=== PATIENT | male | born 1960 | race Caucasian/White ===

== ENCOUNTER 2016-08-29 06:20 | Day surgery (SDC) | payer BC ==
[2016-08-28 14:06] LABS: HEMATOCRIT 45.2 % (42.0-54.0); HEMOGLOBIN 15.2 g/dL (13.5-17.5); MCH 28.4 pg (26.0-34.0); MCHC 33.6 g/dL (31.0-37.0); MCV 84.5 fL (80.0-100.0); MEAN PLATELET VOLUME 10.7 fL (7.4-10.4); RBC 5.35 10x6/uL (4.20-6.10); RDW 14.9 % (11.5-14.5); WBC 12.4 10x3/uL (4.8-10.8)
[~2016-08-29] VITALS: Ht 177.8 cm; Wt 93.0 kg
[~2016-08-29 06:20] MED LIST: CARDIZEM120 MG PO; ELIQUIS5 MG PO; GABAPENTIN100 MG PO; RISPERDAL1 MG PO
[2016-08-29] MEDS ORDERED: FOLATE0.4 MG (06:37)
[2016-08-29] MEDS ORDERED: BAYER CHEWABLE81 MG PO (06:37)
[2016-08-29] MEDS ORDERED: VITAMIN B-150 MG (06:37)
[2016-08-29] MEDS ORDERED: MAGNESIUM OXID250 MG (06:37)
[2016-08-29] MEDS ORDERED: MULTIPLE VITAMI1 TA1 PO (06:38)
[2016-08-29 06:39] VITALS: BP 126/68; Ht 177.8 cm; Wt 93.0 kg
--- NOTE | 2016-08-29 12:57 | NUR ---
0930 IV DC WITH CATHER TIP INTACT
--- NOTE | 2016-09-09 12:19 | OP ---
PATIENT NAME: JESSICA BAR MEDICAL RECORD: [id number] :58 LOCATION:[facility] ADMISSION DATE: SURGEON: KVNG MIRANDA MD DATE OF OPERATION: 08/29/2016 PREOPERATIVE DIAGNOSIS: Right hip degenerative joint disease. POSTOPERATIVE DIAGNOSIS: Right hip degenerative joint disease. PROCEDURE PERFORMED: Right hip injection under fluoroscopy. SURGEON: Ric Miranda MD ANESTHESIA: TIVA. CONDITION: He tolerated the procedure well, was transferred to recovery room in stable condition. INDICATIONS: This is a 55-year-old gentleman with advancing degenerative changes. He was not ready for a hip replacement. He wanted to try an injection to see what kind of relief he would get. OPERATIVE REPORT: The patient was taken to the operating room, placed in a supine position. TIVA anesthesia was obtained. The right hip was confirmed to be the correct hip. It was prepped. C-arm was brought in. IVP dye was injected until it was notably in his hip. He was then injected with a cc of Kenalog and 4 cc of Marcaine plain. He tolerated this well, was awakened and transferred back to the outpatient surgery area in stable condition. TRANSINT:[id number] Voice Confirmation ID: [id number] DOCUMENT ID: [id number] KVNG MIRANDA MD at 1219 CC: [id number] DICTATION DATE: 08/29/16 0849 BOG WORKER: 08/29/16 1722 [facility] 08/29/[address] [address]
== END 2016-08-29 09:45 | disposition home or self-care (01) ==
LOC: D.OPS 06:20 → D.PAN 08:15 → D.OPS 08:45 → D.PAN 08:45 → D.OPS 09:45
PROVIDERS: Anesthesiology
DX: M16.11 Unilateral primary osteoarthritis, right hip (principal)